=== PATIENT | male | born 1990 | race American Indian/Alaskan Native ===

== ENCOUNTER 2019-09-18 13:10 | Outpatient (CLI) | payer OTHER, MEDICAID ==
[2019-09-18 13:39] LABS: Basophils # (Auto) 0.1 K/mm3 (0.0-0.1); Basophils % (Auto) 0.9 % (0.0-1.8); Eosinophils # (Auto) 0.6 K/mm3 (0.0-0.4); Eosinophils % (Auto) 8.7 % (0.0-4.3); Hematocrit 44.4 % (35.5-45.6); Hemoglobin 14.6 gm/dl (11.8-15.2); Lymphocytes % (Auto) 15.5 % (13.4-35.0); Mean Corpuscular HGB Conc 33 % (32-34); Mean Corpuscular Volume 95 fl (84-94); Monocytes # (Auto) 0.4 K/mm3 (0.0-0.8); Monocytes % (Auto) 6.5 % (0.0-7.3); Platelet Count 212 K/mm3 (140-440); Red Cell Distribution Width 15.8 % (13.2-15.2)
[2019-09-18 14:12] LABS: Alanine Aminotransferase 27 units/L (7-56); Albumin 4.6 g/dL (3.9-5); BUN/Creatinine Ratio 17; Blood Urea Nitrogen 12 mg/dL (9-20); Calcium 9.1 mg/dL (8.4-10.2); Chol/HDL Ratio 1.92 %; HDL Cholesterol 71 mg/dL (40-59); Hemolysis Index 6; LDL Cholesterol,Direct 70 mg/dL (50-130)
== END 2019-09-18 13:11 | disposition home or self-care (01) ==
LOC: LAB 13:10
PROVIDERS: ATTEND Nurse Practitioner
DX: F84.0 Autistic disorder (principal); F25.0 Schizoaffective disorder, bipolar type; F70 Mild intellectual disabilities; R79.89 Other specified abnormal findings of blood chemistry
CPT/HCPCS: 36415; 80053; 80061; 83036; 84146; 84443; 85025